=== PATIENT | male | born 1990 | race African-American/Black ===

== ENCOUNTER 2017-01-27 13:15 | Emergency (ER) | payer OTHER ==
[~2017-01-27] VITALS: Ht 180.3 cm; Wt 63.5 kg
[~2017-01-27 13:15] MED LIST: CIPR500T93 PO; FLAG500T PO; PERC10TA27 PO
[2017-01-27 14:00] VITALS: BP 142/88; PULSE 63; RESP 20; TEMP 98.4; O2SAT 97
[2017-01-27 14:04] LABS: AUTOMATED NEUTROPHIL # 2.9 TH/MM3 (1.8-7.7); BASOPHIL % 0.7 % (0.0-2.0); EOSINOPHIL % 0.9 % (0.0-4.0); HEMATOCRIT 44.1 % (39.0-51.0); HEMO FLAGS DIFF FINAL; LYMPH % 25.1 % (9.0-44.0); LYMPHOCYTE # 1.2 TH/MM3 (1.0-4.8); MEAN CELL VOLUME 92.8 FL (80.0-100.0); MEAN CORPUSCULAR HEMOGLOBIN 30.8 PG (27.0-34.0); MEAN CORPUSCULAR HGB CONC 33.3 % (32.0-36.0); MONO % 11.2 % (0.0-8.0); NEUT % 62.1 % (16.0-70.0); PLATELET COUNT 176 TH/MM3 (150-450); RED BLOOD COUNT 4.75 MIL/MM3 (4.50-5.90); RED CELL DISTRIBUTION WIDTH 13.2 % (11.6-17.2); WHITE BLOOD COUNT 4.7 TH/MM3 (4.0-11.0)
[2017-01-27 14:11] LABS: AMPHETAMINE, URINE NEG (NEG); BARBITURATES, URINE NEG (NEG); COCAINE, URINE NEG (NEG)
--- NOTE | 2017-01-27 14:16 | PD ---
HPI Chief Complaint: Suicide Ideation/Attempt Time Seen by Provider: 14:16 Travel History International Travel<30 days: No Contact w/Intl Traveler<30days: No Traveled to known affect area: No History of Present Illness HPI 26-year-old male presents to the ED under Coley act for evaluation for suicidal ideation. According to the Coley act the patient posted a status on Facebook saying that he was going to commit suicide today. Several people called 911 and the patient was brought into the emergency room for evaluation. On presentation the patient endorses posting the statement on Facebook. However, he denies suicidal ideation. He states that he is in the middle of a breakup and this has him feeling pretty depressed. He denies previous psychiatric diagnosis or psychiatric hospitalization. He denies somatic complaints. He takes no daily medications. He endorses drinking alcohol socially and occasional marijuana smoking. PFSH Past Medical History Medical History: Denies Significant Hx Diminished Hearing: No Immunizations Current: Yes Past Surgical History Other Surgery: Yes (HERNIA REPAIR) Social History Alcohol Use: Yes (SOCIAL) Tobacco Use: No Substance Use: Yes (MARIJUANA) Allergies-Medications (Allergen,Severity, Reaction): Coded Allergies: No Known Allergies (Verified , 01/27/17) Reported Meds & Prescriptions Reported Meds & Active Scripts Active No Active Prescriptions or Reported Medications Review of Systems Except as stated in HPI: all other systems reviewed are Neg Physical Exam Narrative GENERAL: Well-nourished, well-developed thin black male in no acute distress. SKIN: Focused skin assessment warm/dry. HEAD: Normocephalic. EYES: No scleral icterus. No injection or drainage. NECK: Supple, trachea midline. No JVD or lymphadenopathy. CARDIOVASCULAR: Regular rate and rhythm without murmurs, gallops, or rubs. RESPIRATORY: Breath sounds clear and equal bilaterally. No accessory muscle use. GASTROINTESTINAL: Abdomen soft, non-tender, nondistended. Active bowel sounds MUSCULOSKELETAL: No cyanosis, or edema. The patient is ambulatory and moves extremities spontaneously. BACK: Nontender without obvious deformity. No CVA tenderness. Data Data Last Documented VS Vital Signs Date Time Temp Pulse Resp B/P Pulse Ox O2 Delivery O2 Flow Rate FiO2 01/27/17 14:00 98.4 63 20 142/88 97 Room Air Orders Complete Blood Count With Diff (01/27/17 13:42) Comprehensive Metabolic Panel (01/27/17 13:42) Psych Screen (01/27/17 13:42) Drug Screen, Random Urine (01/27/17 13:42) Alcohol (Ethanol) (01/27/17 13:42) Diet Regular Basic (01/27/17 Dinner) Labs Laboratory Tests Test 01/27/17 01/27/17 13:50 13:55 White Blood Count 4.7 TH/MM3 Red Blood Count 4.75 MIL/MM3 Hemoglobin 14.7 GM/DL Hematocrit 44.1 % Mean Corpuscular Volume 92.8 FL Mean Corpuscular Hemoglobin 30.8 PG Mean Corpuscular Hemoglobin 33.3 % Concent Red Cell Distribution Width 13.2 % Platelet Count 176 TH/MM3 Mean Platelet Volume 8.3 FL Neutrophils (%) (Auto) 62.1 % Lymphocytes (%) (Auto) 25.1 % Monocytes (%) (Auto) 11.2 % Eosinophils (%) (Auto) 0.9 % Basophils (%) (Auto) 0.7 % Neutrophils # (Auto) 2.9 TH/MM3 Lymphocytes # (Auto) 1.2 TH/MM3 Monocytes # (Auto) 0.5 TH/MM3 Eosinophils # (Auto) 0.0 TH/MM3 Basophils # (Auto) 0.0 TH/MM3 CBC Comment DIFF FINAL Differential Comment Sodium Level 143 MEQ/L Potassium Level 3.5 MEQ/L Chloride Level 108 MEQ/L Carbon Dioxide Level 27.8 MEQ/L Anion Gap 7 MEQ/L Blood Urea Nitrogen 12 MG/DL Creatinine 1.12 MG/DL Estimat Glomerular Filtration 97 ML/MIN Rate Random Glucose 83 MG/DL Calcium Level 9.3 MG/DL Total Bilirubin 1.9 MG/DL Aspartate Amino Transf 22 U/L (AST/SGOT) Alanine Aminotransferase 23 U/L (ALT/SGPT) Alkaline Phosphatase 49 U/L Total Protein 7.3 GM/DL Albumin 4.1 GM/DL Ethyl Alcohol Level LESS THAN 3 MG/DL Urine Opiates Screen NEG Urine Barbiturates Screen NEG Urine Amphetamines Screen NEG Urine Benzodiazepines Screen NEG Urine Cocaine Screen NEG Urine Cannabinoids Screen POS MDM Medical Decision Making Medical Screen Exam Complete: Yes Emergency Medical Condition: Yes Differential Diagnosis Adjustment disorder versus anxiety versus bipolar versus depression versus dementia versus electrolyte disorder versus malingering versus mood disorder versus ODD versus psychosis versus PTSD versus schizophrenia versus schizoaffective disorder versus substance-induced mood disorder versus other Narrative Course 26-year-old male presents to the ED under Coley act for evaluation for suicidal ideation. According to the Coley act the patient posted a status on Facebook saying that he was going to commit suicide today. Several people called 911 and the patient was brought into the emergency room for evaluation. On presentation the patient endorses posting the statement on Facebook. However, he denies suicidal ideation. He states that he is in the middle of a breakup and this has him feeling pretty depressed. He denies previous psychiatric diagnosis or psychiatric hospitalization. He denies somatic complaints. He takes no daily medications. He endorses drinking alcohol socially and occasional marijuana smoking. Vitals reviewed. Physical exam is unremarkable. CBC unremarkable. Bilirubin 1.9 should be followed on an outpatient basis. CMP otherwise unremarkable. Tox screen positive for marijuana. The patient is medically cleared for psychiatric evaluation. Please see psych notes for disposition. Diagnosis Primary Impression: Medical clearance for psychiatric admission Scripts No Active Prescriptions or Reported Meds Helga Sterling Jan 27, 2017 14:16
[2017-01-27 14:18] LABS: ANION GAP 7 MEQ/L (5-15); AST (GOT) 22 U/L (15-37); BICARBONATE 27.8 MEQ/L (21.0-32.0); BLOOD UREA NITROGEN 12 MG/DL (7-18); CHLORIDE 108 MEQ/L (98-107); GLOMERULAR FILTRATION RATE 97 ML/MIN (>89); POTASSIUM 3.5 MEQ/L (3.5-5.1); SODIUM (NA) 143 MEQ/L (136-145)
[2017-01-27 14:21] LABS: ALKALINE PHOSPHATASE 49 U/L (45-117); ALT (GPT) 23 U/L (12-78); TOTAL BILIRUBIN ADULT 1.9 MG/DL (0.2-1.0)
[2017-01-27 16:28] VITALS: BP 136/96; PULSE 94; RESP 20; TEMP 98.6; O2SAT 99
[2017-01-27] MEDS ORDERED: diphenhydrAMINE HCL 50 MG CAP PO ONE (21:00)
[2017-01-27 22:07] VITALS: BP 141/79; PULSE 63; RESP 16; O2SAT 98
[2017-01-28 02:27] VITALS: BP 118/56; PULSE 66; RESP 17; O2SAT 98
[2017-01-28 06:22] VITALS: BP 148/71; PULSE 72; RESP 16; O2SAT 99
--- NOTE | 2017-01-28 09:59 | PD ---
History of Present Illness Chief Complaint: Suicide Ideation/Attempt Time Seen by Provider: 09:45 Travel History International Travel<30 Days: No Contact w/Intl Traveler<30days: No Known affected area: No Legal Status Legal Status: Coley Act Coley Act Signed By: Edin Darby Coley Act Comment: ROBERT signed by: PERLITA TINEO, 01/27/2017, 106pm History of Present Illness: History of Present Illness HPI 26-year-old single male with no previous psychiatric history who presents to the ED under Coley act for evaluation for suicidal ideation. According to the Coley act the patient posted a status on Facebook saying that he was going to commit suicide today. Several people called 911 and the patient was brought into the emergency room for evaluation. Patient was monitored in J pod and he presented no behavioral concerns and no suicidality. Record is reviewed and no previous contact with [facility] psychiatry dept. Staff has obtained collateral information from the patient's sister who presented no concerns regarding his safety. Current toxicology is positive for cannabinoids. This morning the patient is alert, oriented, calm, engaging and cooperative. He presents no hallucinations, no delusions and no paranoia. His speech is clear, logical and articulate. There is no significant depression or anxiety. Patient wants to be discharged as he has a job interview later today and he is excited over possibility of getting this job. He acknowledges that he was stressed when he wrote the messages and admits to having sent them. He denies that he was actually thinking of harming himself but that he was sad over the breakup of his relationship of 7 years. PFSH Past Medical History Medical History: Denies Significant Hx Diminished Hearing: No Immunizations Current: Yes Past Surgical History Other Surgery: Yes (HERNIA REPAIR) Psychiatric History Psychiatric History Hx Psychiatric Treatment: Denies any History of Inpatient Treatment: No Guns or firearms in home: No Social History Single male. Lives with family friends. 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 Hx Alcohol Use: Yes (SOCIAL) Hx Tobacco Use: No Hx Substance Use: Yes (Denies) Substance Use Type: Marijuana Hx of Substance Use Treatment: No Family Psychiatric History None reported. Allergies-Medications (Allergen,Severity, Reaction): Coded Allergies: No Known Allergies (Verified , 01/27/17) Reported Meds & Prescriptions Reported Meds & Active Scripts Active No Active Prescriptions or Reported Medications Review of Systems Except as stated in HPI: all other systems reviewed are Neg Exam Alert: Yes [place]: Person (ox4) Mood: Calm Affect: Appropriate Speech: Clear, Logical Eye Contact: Normal Memory Intact: Comment (no impairment) Hallucinations: Other (negative) Delusions: No Suicidal: Ideation (denies any) Homicidal: Ideation (denies any) Insight/Judgement Fair. Not impaired. MDM Medical Decision Making Medical Record Reviewed: Yes Assessment/Plan 26 year old with no previous psychiatric history and no current psychiatric symptoms who after his relationship ended posted some m messages on Face Book stating that he was thinking of harming himself. Patient was monitored in J pod and presented no suicidality and no behavioral concerns. He denies any intention of harming self or others and is future oriented. He is requesting discharge as he has a job interview today. ROBERT cain presents no criteria at this time. Orders Complete Blood Count With Diff (01/27/17 13:42) Comprehensive Metabolic Panel (01/27/17 13:42) Psych Screen (01/27/17 13:42) Drug Screen, Random Urine (01/27/17 13:42) Alcohol (Ethanol) (01/27/17 13:42) Diet Regular Basic (01/27/17 Lunch) Diet Regular Basic (01/27/17 Dinner) Diphenhydramine (Benadryl) (01/27/17 21:00) Diet Regular Basic (01/28/17 Breakfast) Diet Regular Basic (01/28/17 Lunch) Results Vital Signs Date Time Temp Pulse Resp B/P Pulse Ox O2 Delivery O2 Flow Rate FiO2 01/28/17 06:22 72 16 148/71 99 Room Air 01/28/17 02:27 66 17 118/56 98 Room Air 01/27/17 22:07 63 16 141/79 98 Room Air 01/27/17 16:28 98.6 94 20 136/96 99 01/27/17 14:00 98.4 63 20 142/88 97 Room Air Laboratory Tests Test 01/27/17 01/27/17 13:50 13:55 White Blood Count 4.7 Red Blood Count 4.75 Hemoglobin 14.7 Hematocrit 44.1 Mean Corpuscular Volume 92.8 Mean Corpuscular Hemoglobin 30.8 Mean Corpuscular Hemoglobin 33.3 Concent Red Cell Distribution Width 13.2 Platelet Count 176 Mean Platelet Volume 8.3 Neutrophils (%) (Auto) 62.1 Lymphocytes (%) (Auto) 25.1 Monocytes (%) (Auto) 11.2 Eosinophils (%) (Auto) 0.9 Basophils (%) (Auto) 0.7 Neutrophils # (Auto) 2.9 Lymphocytes # (Auto) 1.2 Monocytes # (Auto) 0.5 Eosinophils # (Auto) 0.0 Basophils # (Auto) 0.0 CBC Comment DIFF FINAL Differential Comment Sodium Level 143 Potassium Level 3.5 Chloride Level 108 Carbon Dioxide Level 27.8 Anion Gap 7 Blood Urea Nitrogen 12 Creatinine 1.12 Estimat Glomerular Filtration 97 Rate Random Glucose 83 Calcium Level 9.3 Total Bilirubin 1.9 Aspartate Amino Transf 22 (AST/SGOT) Alanine Aminotransferase 23 (ALT/SGPT) Alkaline Phosphatase 49 Total Protein 7.3 Albumin 4.1 Ethyl Alcohol Level LESS THAN 3 Urine Opiates Screen NEG Urine Barbiturates Screen NEG Urine Amphetamines Screen NEG Urine Benzodiazepines Screen NEG Urine Cocaine Screen NEG Urine Cannabinoids Screen POS Diagnosis Primary Impression: Medical clearance for psychiatric admission Additional Impression: Adjustment disorder Psychiatrically Cleared: Yes Med/ Other Pt Specific Info: No Meds Exist/No RX given Prescriptions No Active Prescriptions or Reported Meds Disposition: 01 DISCHARGE HOME Condition: Stable Problem Qualifiers Additional Impression: Adjustment disorder Qualified Code: F43.21 - Adjustment disorder with depressed mood Susy Barragan [facility] Jan 28, 2017 09:58
== END 2017-01-28 10:13 | disposition home or self-care (01) ==
LOC: NEPJ 13:15
DX: F43.21 Adjustment disorder with depressed mood (principal)
CPT/HCPCS: 80053; 80307; 85025; 99284; Q0163